=== PATIENT | female | born 1965 | race Caucasian/White ===

== ENCOUNTER → 2016-04-09 | Outpatient (CLI) | payer OTHER ==
[~2016-04-09] MED LIST: BUPR200T2 PO; BUPRTAB51 PO; CLON0.5T3 PO; CYCL5TAB PO; FLUO10CA48 PO; MULT-506 PO; TIZA2CAP PO; VNTHFA/IN INH; ZOLP10TA PO; ZOLP10TA6 PO
--- NOTE | 2016-04-09 15:11 | MAMMOGRAPHY REPORT ---
THIS REPORT HAS BEEN AMENDED. UNILATERAL LEFT DIGITAL DIAGNOSTIC MAMMOGRAM TOMOSYNTHESIS AND LEFT ULTRASOUND: 04/09/2016 CLINICAL HISTORY: Callback from screening mammography for a subcentimeter mass in the superior left breast, and left lateral asymmetry. No family history of breast cancer. TECHNIQUE: Spot compression CC and MLO tomosynthesis images with reconstructed C-view were obtained in the left breast. COMPARISON: Comparison is made to exams dated: 03/20/2016 mammogram - [facility], 01/22/2013 mammogram, 12/26/2012 mammogram - [facility], and 08/20/2007. BREAST COMPOSITION: The tissue of the left breast is heterogeneously dense, which may obscure small masses. FINDINGS: There is effacement of the dense asymmetry in the lateral, middle one third of the left br east on the spot compression CC tomosynthesis images. There is no persistent architectural distorti on or suspicious mass. There is an oval circumscribed benign-appearing 6.3 mm mass in the lateral, middle to posterior left breast on the spot compression CC view, which is thought to project in the 2:00 to 3:00 axis based on the spot compression MLO view. Further evaluation with ultrasound was pe rformed throughout the left breast given the asymmetries, masses and dense breast parenchyma. Real-time high-resolution sonographic evaluation was performed throughout the entire left breast inc luding the axilla. Multiple anechoic cysts are identified. The first is located in the 1:00 axis, 1 cm from the nipple, measuring 4.9 x 2.5 mm. 2 abutting anechoic simple cysts are seen in the 2:00 left breast, 4 cm from the nipple, measuring 6.9 x 4.1 x 5.5 mm. This is thought to correlate well with the circumscribed oval mammographic mass. An oval parallel circumscribed anechoic cyst is see n in the 3:00 left breast, 2 cm from the nipple, measuring 6.2 x 2.2 mm. Another lobulated anechoic cyst with posterior acoustic enhancement is identified in the 5:00 periareolar left breast measurin g 6.8 x 4.2 mm. A deeper anechoic cyst is seen in the 9:00 periareolar left breast measuring 6.8 x 4.0 mm. 2 small cysts are seen in the 10:00 axis of the left breast. Within the 10:00 breast, 2 cm from the nipple, there is a 2.5 x 2.1 mm anechoic cyst, and there is a 2.6 x 3.0 mm anechoic cyst 3 cm from the nipple. IMPRESSION: ACR BI-RADS CATEGORY 2: BENIGN, ULTRASOUND ACR BI-RADS CATEGORY 2: BENIGN 1. There is effacement of the left lateral asymmetry, and no suspicious sonographic correlate. Thi s most likely represented normal overlapping fibroglandular tissue and is benign. No further follow -up is needed at this time. 2. The circumscribed mass in the upper outer quadrant of the left breast correlates with 2 abutting anechoic simple cysts on ultrasound. Several other anechoic cysts are scattered throughout the lef t breast, compatible with fibrocystic changes. There is no sonographic evidence of malignancy. Rec ommend follow-up at time of next annual screening mammogram. These results and recommendations were discussed with the patient at the time of the exam. Approximately 10% of breast cancers are not detected with mammography. A negative mammographic repor t should not delay biopsy if a clinically suggestive mass is present. Lashell Cameron M.D. ay/:04/09/2016 14:23:18 Back Grinder: Carolyn WEINSTEIN)([place]), [facility] letter sent: Normal 1/2 BI-RADS Code: ACR BI-RADS Category 2: Benign Ultrasound BI-RADS: ACR BI-RADS Category 2: Benign AMENDMENT: 04/09/2016 Lashell Cameron M.D. The additional finding of possible architectural distortion in the anterior subareolar left breast, only seen on the MLO tomosynthesis images completely effaces on the spot compression MLO tomosynthes is view and has the appearance of normal architecture of the breast including blood vessels and Coop er's ligaments. This is considered benign as well. Amended BI-RADS: ACR BI-RADS Category 2: Benign
== END | disposition home or self-care (01) ==
LOC: C.MAMM 13:38
PROVIDERS: ATTEND Obstetrics & Gynecology
DX: R92.8 Other abnormal and inconclusive findings on diagnostic imaging of breast (principal); N60.02 Solitary cyst of left breast

== ENCOUNTER → 2016-04-24 | Outpatient (CLI) | payer OTHER ==
[~2016-04-24] MED LIST changes: -BUPR200T2 PO
[2016-04-24 13:13] LABS: BASO % 1.3 %; BASO ABS # 0.06 K/uL (0-0.2); COMPLETE YES; EOS % 2.7 %; HEMATOCRIT 39.2 % (37-47); IG% 0.2 %; LYMPH % 40.4 %; LYMPH ABS # 1.92 K/uL (1.2-3.4); MEAN CELL VOLUME 87.9 fL (80-100); MEAN CORPUSCULAR HEMOGLOBIN 29.8 pg (25-34); MEAN CORPUSCULAR HGB CONC 33.9 g/dl (32-36); MEAN PLATELET VOLUME 10.3 fL (7.4-10.4); MONO % 8.4 %; PLATELET COUNT 286 K/uL (130-400); RED BLOOD COUNT 4.46 M/uL (4.2-5.4); WHITE BLOOD COUNT 4.75 K/uL (4.8-10.8)
[2016-04-24 13:45] LABS: ALB/GLOB RATIO 1.4 (0.9-2); ALKALINE PHOSPHATASE 50 U/L (45-117); ALT/SGPT 18 U/L (12-78); AST/SGOT 9 U/L (15-37); BLOOD UREA NITROGEN 15 mg/dl (7-18); BUN/CREATININE RATIO 16.8 (10-20); CALCIUM 8.7 mg/dl (8.5-10.1); CARBON DIOXIDE 23 mmol/L (21-32); CHLORIDE 109 mmol/L (98-107); GLUCOSE 89 mg/dl (70-99); HDL CHOLESTEROL 68 mg/dl; SODIUM 141 mmol/L (136-145)
[2016-04-24 13:50] LABS: C-REACTIVE PROTEIN < 0.29 mg/dl (0-0.29); CHOLESTEROL 202 mg/dl (0-200); LDL CHOLESTEROL CALCULATED 120 mg/dl; RHEUMATOID FACTOR < 10.0 U/mL (0-15); TRIGLYCERIDES 69 mg/dl (0-150); URIC ACID 3.6 mg/dl (2.6-7.2); VERY LOW DENSITY LIPOPROT CALC 14 mg/dl
[2016-04-24 13:53] LABS: BENZODIAZEPINE, URINE NEG (NEG); COCAINE,URINE NEG (NEG); PHENCYCLIDINE, URINE NEG (NEG)
[2016-04-25 15:27] LABS: CYCLIC CITRULLINATED PEPT IGG <16 UNITS (<20)
== END | disposition home or self-care (01) ==
LOC: C.LABBC 10:06
PROVIDERS: ATTEND Nurse Practitioner Adult Health
DX: Z13.220 Encounter for screening for lipoid disorders (principal); R51 Headache; M13.0 Polyarthritis, unspecified; M25.50 Pain in unspecified joint

== ENCOUNTER → 2016-07-25 | Outpatient (CLI) | payer OTHER ==
[~2016-07-25] MED LIST changes: +BUPR200T2 PO
--- NOTE | 2016-07-25 10:00 | DIAGNOSTIC IMAGING REPORT ---
RIGHT HAND 3 VIEWS CLINICAL HISTORY: Polyarthropathy. FINDINGS: 3 views of the right hand are obtained. No prior studies are available for comparison at the time of dictation. The skeletal structures are well mineralized. No fracture is seen. There is minimal osteoarthritic change at the first carpometacarpal articulation. Minimal osteoarthritic change is also seen involving the interphalangeal joints. No erosive disease is identified. The overlying soft tissues are within normal limits. IMPRESSION: Minimal osteoarthritic change as above. No acute bony abnormality is identified and there is no evidence of erosive arthropathy. Electronically signed by: Marshall Torres M.D. 07/25/2016 9:58 AM Dictated Date/Time: 07/25/2016 9:57 AM
--- NOTE | 2016-07-25 10:02 | DIAGNOSTIC IMAGING REPORT ---
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 DISCUSSION: The bones and joint spaces appear intact. There is no evidence of fracture, dislocation or bony disease. There is no evidence for soft tissue swelling. IMPRESSION: Negative study. Electronically signed by: Toan Snow M.D. 07/25/2016 10:00 AM Dictated Date/Time: 07/25/2016 10:00 AM
[2016-07-29 02:35] LABS: ANTI-CENTROMERE AB <1.0 NEG AI (<1.0 NEG); ANTI-SS-A <1.0 NEG AI (<1.0 NEG); ANTI-SS-B <1.0 NEG AI (<1.0 NEG); DNA ds CRITHIDIA NEGATIVE (NEGATIVE); Sm Antibody <1.0 NEG AI (<1.0 NEG)
== END | disposition home or self-care (01) ==
LOC: C.RAD1850 09:31
PROVIDERS: ATTEND Internal Medicine Rheumatology
DX: M13.0 Polyarthritis, unspecified (principal); R76.8 Other specified abnormal immunological findings in serum

== ENCOUNTER → 2016-11-12 | Outpatient (CLI) | payer OTHER ==
[~2016-11-12] MED LIST changes: -BUPR200T2 PO
--- NOTE | 2016-11-12 13:02 | DIAGNOSTIC IMAGING REPORT ---
CHEST 2 VIEWS ROUTINE HISTORY: Short of breath. COMPARISON: None. FINDINGS: The lungs are clear. Cardiac silhouette is normal in size. No pleural effusions. No pneumothorax. IMPRESSION: No acute process. Electronically signed by: Roderick High M.D. 11/12/2016 1:00 PM Dictated Date/Time: 11/12/2016 12:57 PM
== END | disposition home or self-care (01) ==
LOC: C.RAD1850 12:39
PROVIDERS: ATTEND Nurse Practitioner Adult Health
DX: R06.02 Shortness of breath (principal)

== ENCOUNTER → 2016-11-27 | Day surgery (SDC) | payer OTHER ==
[2016-11-14 08:17] VITALS: Ht 167.6 cm; Wt 70.5 kg
[~2016-11-27] VITALS: Ht 167.6 cm; Wt 70.5 kg
[~2016-11-27] MED LIST changes: -CYCL5TAB PO; +LIDOCAINE HCL 2% 2 ML VIAL (20MG/ML) ONE; -MULT-506 PO; +PROPOFOL IV EMULSION 10 MG/ML 20 ML VIAL IV ONE; +SODIUM CHLORIDE 0.9% 500ML 500 ML IV ONE; -ZOLP10TA PO
--- NOTE | 2016-11-27 10:52 | Endo History and Physical ---
History & Physical Date of Service: Nov 27, 2016. Chief Complaint: SCREENING FOR COLON CANCER Referring Physician: DEIDRE BENNETT History of Present Illness 51 yo CF who presents for screening colonoscopy. Past Surgical History Hx Cardiac Surgery: No Hx Internal Defibrillator: No Hx Pacemaker: No Hx Abdominal Surgery: Yes ( X2) Hx of Implantable Prosthesis: No Hx Post-Op Nausea and Vomiting: Yes Hx Cancer Surgery: No Hx Thoracic Surgery: No Hx Orthopedic: Yes (LT KNEE ARTHROSCOPY, RT TRIGGER THUMB RELEASE) Hx Urinary Tract Surgery: No Family History None Social History Smoking Status: Never Smoker Hx Substance Use: No Hx Alcohol Use: No Allergies Coded Allergies: NO KNOWN DRUG ALLERGIES (Verified Allergy, Unknown, ., 11/27/16) Nickel (Verified Adverse Reaction, Mild, SKIN SENSITIVITY, 11/27/16) "USES SENSITIVE SKIN EARINGS" Current Medications Reported Home Medications Medications Dose Route/Sig Max Daily Dose Days Date Category Prozac (Fluoxetine HCl) 10 Mg Cap 10 Mg PO UD PRN 11/14/16 Reported Ventolin Hfa (Albuterol) 200 Puffs/95880 Mcg Aers 2-4 Puffs INH Q6H PRN 11/14/16 Reported Zanaflex (Tizanidine HCl) 2 Mg Cap 2 Mg PO BID PRN 11/14/16 Reported Zolpidem Tartrate 10 Mg Tab 0.5-1 Tab PO HS PRN 11/14/16 Reported Klonopin (Clonazepam) 0.5 Mg Tab 0.5-1 Tab PO HS PRN 11/14/16 Reported Wellbutrin-Xl (Bupropion HCl) 300 Mg Tabcr 300 Mg PO HS 11/14/16 Reported Vital Signs Weight (Kilograms): 70.45 Height (Feet): 5 Height (Inches): 6 Date Time Temp Pulse Resp B/P (MAP) Pulse Ox O2 Delivery O2 Flow Rate FiO2 11/27/16 10:31 37.1 74 18 106/64 (78) 100 Room Air Physical Exam General Appearance: WD/WN, no apparent distress Respiratory/Chest: Auscultation: breath sounds normal Cardiovascular: Heart Auscultation: RRR Abdomen: Bowel Sounds: normal Inspection & Palpation: soft, non-distended, no tenderness, guarding & rebound Assessment and Plan Assessment: 51 yo CF who presents for screening colonoscopy. Plan: Proceed with colonoscopy.
--- NOTE | 2016-11-27 11:15 | Discharge Instructions ---
Endoscopy Patient Instructions Date / Procedure(s) Performed Nov 27, 2016. Colonoscopy Allergy Information Coded Allergies: NO KNOWN DRUG ALLERGIES (Verified Allergy, Unknown, ., 11/27/16) Nickel (Verified Adverse Reaction, Mild, SKIN SENSITIVITY, 11/27/16) "USES SENSITIVE SKIN EARINGS" Discharge Date / Findings Nov 27, 2016. Diverticulosis and Internal hemorrhoids Medication Instructions OK to resume all medications today as prescribed Reported Home Medications Medications Dose Route/Sig Max Daily Dose Days Date Category Prozac (Fluoxetine HCl) 10 Mg Cap 10 Mg PO UD PRN 11/14/16 Reported Ventolin Hfa (Albuterol) 200 Puffs/03211 Mcg Aers 2-4 Puffs INH Q6H PRN 11/14/16 Reported Zanaflex (Tizanidine HCl) 2 Mg Cap 2 Mg PO BID PRN 11/14/16 Reported Zolpidem Tartrate 10 Mg Tab 0.5-1 Tab PO HS PRN 11/14/16 Reported Klonopin (Clonazepam) 0.5 Mg Tab 0.5-1 Tab PO HS PRN 11/14/16 Reported Wellbutrin-Xl (Bupropion HCl) 300 Mg Tabcr 300 Mg PO HS 11/14/16 Reported Provider Instructions Activity Restrictions - No exercising or heavy lifting for 24 hours. - Do not drink alcohol the day of the procedure. - Do not drive a car or operate machinery until the day after the procedure. - Do not make any important decisions or sign important papers in 24 hours after the procedure. Following Day: - Return to full activity which may include returning to work/school. Diet Start your diet with liquids and light foods (jello, soup, juice, toast). Then eat your usual diet if not nauseated. Treatment For Common After Affects For mild abdominal pain, bloating, or excessive gas: - Rest - Eat lightly - Lie on right side Follow-Up Information Follow-up with DEIDRE BENNETT as scheduled Anesthesia Information What You Should Know You have had a procedure that required some medicine to reduce anxiety and discomfort. This treatment is called moderate sedation. After receiving the treatment, you may be sleepy, but you will be able to breathe on your own. The effects of the treatment may last for several hours. Follow these instructions along with Activity/Diet recommendations noted above: * Do NOT do anything where dizziness or clumsiness would be dangerous. * Rest quietly at home today, then you can be up and about tomorrow. * Have a responsible person stay with you the rest of today. * You may have had an I.V. today. If so, you may take the dressing off later today. Recommendations Call your doctor if: * Trouble breathing * Continuous vomiting for more than 24 hours * Temperature above 101 degrees * Severe abdominal pain or bloating * Pain not relieved by pain medicine ordered * There is increased drainage or redness from any incision * A large amount of rectal bleeding greater than 2-3 tablespoons. (If you had a polyp/s removed or have hemorrhoids, a small amount of blood - from the rectum is to be expected.) * You have any unanswered questions or concerns. IN THE EVENT OF A SERIOUS EMERGENCY, GO TO THE NEAREST EMERGENCY ROOM Your discharge instructions were prepared by provider Nixon Saini. Patient Instructions Signature Page Katina Chau Patient (or Guardian) Signature/Date: I have read and understand the instructions given to me by my caregivers. Caregiver/RN/Doctor Signature/Date: The above-named patient and/or guardian has received patient instructions on this date. + Original Patient Signature Page (only) stays with chart. Please make copy for patient.
--- NOTE | 2016-11-27 11:35 | Anesthesiology Progress Note ---
Anesthesia Post Op Note Date & Time Nov 27, 2016 at 11:35 Vital Signs Pain Intensity: 0 Vital Signs Past 12 Hours Date Time Temp Pulse Resp B/P (MAP) Pulse Ox O2 Delivery O2 Flow Rate FiO2 11/27/16 11:31 69 16 113/61 (78) 100 Room Air 11/27/16 11:16 76 16 101/57 (72) 100 Room Air 11/27/16 10:31 37.1 74 18 106/64 (78) 100 Room Air Notes Mental Status: alert / awake / arousable, participated in evaluation Pt Amnestic to Procedure: Yes Nausea / Vomiting: adequately controlled Pain: adequately controlled Airway Patency, RR, SpO2: stable & adequate BP & HR: stable & adequate Hydration State: stable & adequate Anesthetic Complications: no major complications apparent
[2016-11-27 11:46] VITALS: BP 104/58; PULSE 70; O2SAT 100
--- NOTE | 2016-11-28 00:14 | GI REPORT ---
Procedure Date: 11/27/2016 10:46 AM Procedure: Colonoscopy Indications: Screening for colorectal malignant neoplasm Medicines: Monitored Anesthesia Care Complications: No immediate complications. Estimated Blood Loss: Estimated blood loss: none. Procedure: Pre-Anesthesia Assessment: - Prior to the procedure, a History and Physical was performed, and patient medications and allergies were reviewed. The patient's tolerance of previous anesthesia was also reviewed. The risks and benefits of the procedure and the sedation options and risks were discussed with the patient. All questions were answered, and informed consent was obtained. Prior Anticoagulants: The patient has taken no previous anticoagulant or antiplatelet agents. ASA Grade Assessment: II - A patient with mild systemic disease. After reviewing the risks and benefits, the patient was deemed in satisfactory condition to undergo the procedure. After I obtained informed consent, the scope was passed under direct vision. Throughout the procedure, the patient's blood pressure, pulse, and oxygen saturations were monitored continuously. The Scope was introduced through the anus and advanced to the terminal ileum. The colonoscopy was performed without difficulty. The patient tolerated the procedure well. The quality of the bowel preparation was good. The terminal ileum, ileocecal valve, appendiceal orifice, and rectum were photographed. Findings: Multiple small-mouthed diverticula were found in the sigmoid colon. Internal hemorrhoids were found during retroflexion. The hemorrhoids were small. Impression: - Diverticulosis in the sigmoid colon. - Internal hemorrhoids. - No specimens collected. Recommendation: - Resume previous diet. - Continue present medications. - Repeat colonoscopy in 10 years for surveillance. - Return to primary care physician as previously scheduled. Nixon Saini, DO 11/27/2016 11:13:50 AM This report has been signed electronically. Note Initiated On: 11/27/2016 10:46 AM I attest to the content of the Intraoperative Record and orders documented therein, exceptions below
== END | disposition home or self-care (01) ==
LOC: C.GI 10:09
PROVIDERS: ATTEND Internal Medicine
DX: Z12.11 Encounter for screening for malignant neoplasm of colon (principal); K57.30 Diverticulosis of large intestine without perforation or abscess without bleeding; K64.8 Other hemorrhoids

== ENCOUNTER → 2017-03-05 | Day surgery (SDC) | payer OTHER ==
[2017-02-12 15:43] VITALS: Ht 167.6 cm; Wt 68.6 kg
[2017-02-20 18:06] LABS: URINE APPEARANCE CLEAR (CLEAR); URINE BILIRUBIN NEG (NEG); URINE COLOR YELLOW; URINE NITRITE NEG (NEG); URINE SPECIFIC GRAVITY 1.017 (1.000-1.030); UROBILINOGEN NEG (NEG)
[2017-02-20 18:08] LABS: MANUAL MICROSCOPIC REQUIRED? NO; REVIEW REQ? NO
[2017-02-24 09:38] LABS: BASO % 0.9 %; BASO ABS # 0.04 K/uL (0-0.2); COMPLETE YES; EOS % 3.5 %; HEMATOCRIT 36.1 % (37-47); LYMPH % 35.6 %; LYMPH ABS # 1.53 K/uL (1.2-3.4); MEAN CELL VOLUME 87.8 fL (80-100); MEAN CORPUSCULAR HEMOGLOBIN 28.2 pg (25-34); MEAN CORPUSCULAR HGB CONC 32.1 g/dl (32-36); MEAN PLATELET VOLUME 10.1 fL (7.4-10.4); MONO % 6.5 %; NEUT % 53.5 %; PLATELET COUNT 293 K/uL (130-400); RED BLOOD COUNT 4.11 M/uL (4.2-5.4)
[~2017-03-05] VITALS: Ht 167.6 cm; Wt 68.6 kg
[~2017-03-05] MED LIST changes: +ATROPINE SULFATE 0.1 MG/ML 5ML SYR IV PRN; +BETAXOLOL HCL 0.25% OP SUSP PER DROP CHARGE OPL SCH; +BUPR200T2 PO; -BUPRTAB51 PO; +CYCLOPENTOLATE HCL 1% OP SOLN PER DROP CHARGE OPL SCH; +DEXAMETHASONE SOD INJ 4 MG/ML VIAL ONE; +EpHEDrine SULFATE INJ 50 MG/ML AMP IV PRN; +FENTANYL CITRATE INJ 50 MCG/1 ML 2 ML VIAL IV PRN; +FENTANYL CITRATE INJ 50 MCG/1 ML 2 ML VIAL ONE; +HYDROmorphone INJ 1 MG/ML SYR IV PRN; +KETOROLAC TROMETHAMINE 30 MG/ML VIAL ONE; +LACTATED RINGER'S 1000ML 1,000 ML IV SCH; +LACTATED RINGER'S 1000ML 500 ML IV SCH; +LIDOCAINE 4% OP SOLN DROP CHARGE OPL SCH; +MIDAZOLAM HCL 1 MG/ML 2ML VIAL ONE; +MOXIFLOXACIN OPH SOLN PER DROP CHARGE OPL SCH; +ONDANSETRON INJ 2 MG/ML 2 ML VIAL IV PRN; +ONDANSETRON INJ 2 MG/ML 2 ML VIAL ONE; +OXYCODONE/ACETAMINOPHEN 5-325 TAB PO PRN; +PHENYLEPHRINE HCL 2.5% OP SOLN PER DROP CHARGE OPL SCH; +PROMETHAZINE HCL INJ 12.5 MG in SODIUM CHLORIDE 0.9% 50ML 50 ML IV PRN; +PROMETHAZINE HCL INJ 25 MG in SODIUM CHLORIDE 0.9% 50ML 50 ML IV PRN; +PROPARACAINE 0.5% OP SOLN PER DROP CHARGE OPL SCH; +SODIUM CHLORIDE 0.9% 1000ML 1,000 ML IV SCH; -SODIUM CHLORIDE 0.9% 500ML 500 ML IV ONE; +TROPICAMIDE 1% OP SOLN PER DROP CHARGE OPL SCH; -VNTHFA/IN INH
--- NOTE | 2017-03-05 13:10 | History & Physical Bridge - SC ---
H&P Re-Evaluation Bridge Note: I have examined the patient, reviewed the History & Physical and in the interval since the performance of the History & Physical I have noted the following changes of clinical significance: No changes noted
[2017-03-05 13:57] VITALS: TEMP 36.3
--- NOTE | 2017-03-05 14:06 | [facility] Post Operative Brief Note ---
Immediate Operative Summary Operative Date Mar 05, 2017. Pre-Operative Diagnosis Menorrhagia Post-Operative Diagnosis Same as pre-op Procedure(s) Performed Dilatation And Curettage, Hysteroscopy, Intrauterine Device Placement Surgeon Screen Printer Helper Surgeon(s) None Estimated Blood Loss 5ML Findings Large amount of fluffy endometrium, bilateral tubal ostia visualized. Retroverted uterus, sounded to 9cm. Specimens A.Endometrial currettings Drains bladder drained prior to procedure Anesthesia heavy sedation Complication(s) None Disposition Recovery Room / PACU
--- NOTE | 2017-03-05 14:07 | Discharge Instructions-SurgCtr ---
Discharge Instructions Date of Service Mar 05, 2017. Visit Reason for Visit: Menorrhagia Discharge Discharge Diagnosis / Problem: same Discharge Goals Goal(s): Diagnostic testing, Therapeutic intervention Activity Recommendations Activity Limitations: per Instructions/Follow-up section Anesthesia . Post Anesthesia Instructions: If you have had General Anesthesia or IV Sedation: * Do not drive today. * Resume driving when surgeon permits. * Do not make important decisions or sign legal documents today. * Call surgeon for: 1. Temperature elevations greater than 101 degrees F. 2. Uncontrollable pain. 3. Excessive bleeding. 4. Persistent nausea and vomiting. 5. Medication intolerance (nausea, vomiting or rash). * For nausea and vomiting use only clear liquids such as: tea, soda, bouillon until nausea subsides, then gradually increase diet as tolerated. * If you have any concerns or questions, call your surgeon's office. If physician is unavailable and it is an emergency, call 911 or go to the nearest emergency room. . Instructions / Follow-Up Instructions / Follow-Up ACTIVITY RECOMMENDATIONS: * Avoid tampons, douching, hot tubs, pools, and intercourse until bleeding has stopped. * May shower as usual. * No strenuous activity for 24-48 hours. After 24-48 hours, you may do anything you feel like doing (driving and sports are okay). SPECIAL CARE INSTRUCTIONS: Special Diet: * Mild nausea may occur in the immediate post-operative period. * Take clear liquids such as tea, cola or bouillon until all nausea has subsided; you may then resume your normal diet. Special Care: * Light bleeding and vaginal spotting can last from a few days to 3-4 weeks. Call your doctor if bleeding becomes heavier than the heaviest part of your period. * Check your temperature twice a day for one week. If it goes above 100.4 degrees Fahrenheit (38.0 Celsius), notify your doctor. * Call your doctor's office for an appointment for 6 weeks after your surgery. FOLLOW-UP VISIT: Call your doctor's office for an appointment for 6 weeks after your surgery. Diet Recommendations Home Diet: resume previous diet Procedures Procedures Performed: Dilatation And Curettage, Hysteroscopy, Intrauterine Device Placement Pending Studies Studies pending at discharge: yes List of pending studies: endometrial curettage Medical Emergencies . Who to Call and When: Medical Emergencies: If at any time you feel your situation is an emergency, please call 911 immediately. . Non-Emergent Contact Non-Emergency issues call your: Primary Care Provider, Water Treatment Plant Operator . . "Provider Documentation" section prepared by Janelle Church. .
--- NOTE | 2017-03-05 14:24 | OPERATIVE REPORT ---
DATE OF OPERATION: 03/05/2017 PREOPERATIVE DIAGNOSIS: Menorrhagia. POSTOPERATIVE DIAGNOSIS: Same. PROCEDURES PERFORMED: Dilation and curettage, hysteroscopy and placement of Mirena intrauterine device. SURGEON: Dr. Janelle Church. STRAIGHTENER GUN PARTS: None. ESTIMATED BLOOD LOSS: 5 mL. FINDINGS: Large amount of fluffy endometrium, bilateral tubal ostia visualized, retroverted uterus sounded to 9 cm. SPECIMENS: Endometrial curettings. DRAINS: Bladder drained prior to procedure. ANESTHESIA: Heavy sedation. COMPLICATIONS: None. DISPOSITION: Stable and good to recovery area. INDICATIONS FOR PROCEDURE: The patient is a 51-year-old with thickened endometrial lining on ultrasound and history of heavy menses. In office endometrial biopsy was attempted but unable to perform due to discomfort and patient intolerance, thus in office hysteroscopy, D&C and insertion of Mirena IUD at the same time was planned. DESCRIPTION OF PROCEDURE: The patient was seen in the preoperative holding area where risks, benefits, alternatives to surgery were reviewed. She elected to proceed with surgery. She had previously signed informed consent in the office under no duress. She was taken to the operating room where heavy sedation was introduced. She was placed in the dorsal lithotomy position with feet in candy cane stirrups and prepared and draped in the usual sterile fashion. Timeout was confirmed. A weighted speculum was placed in the vagina and the cervix was visualized. The anterior lip was grasped with a single tooth tenaculum. Cervix was gently dilated to admit a hysteroscope. Hysteroscope was inserted, the cavity was viewed, the above noted findings were seen. The hysteroscope was then withdrawn and a gentle curettage was undertaken with a sharp curette. These curettings were then sent to pathology for further evaluation. Next, the Mirena IUD device was inserted through the cervix to the fundus, pulled back approximately 1 cm. The arms were deployed. About 15 seconds of waiting and then the insertion device was removed. Strings were trimmed at about 2-3 cm and tucked behind the cervix. All instruments were removed from the vagina. Excellent hemostasis was observed. The patient was taken to the recovery area in stable and good condition. I attest to the content of the Intraoperative Record and any orders documented therein. Any exception s are noted below.
[2017-03-05 14:45] VITALS: BP 127/80; PULSE 72; O2SAT 100
--- NOTE | 2017-03-05 14:56 | Anesthesia Progress Nt - [facility] ---
Anesthesia Post Op Note Date & Time Mar 05, 2017 at 14:55 Vital Signs Pain Intensity: 2.0 Vital Signs Past 12 Hours Date Time Temp Pulse Resp B/P (MAP) Pulse Ox O2 Delivery O2 Flow Rate FiO2 03/05/17 14:45 72 16 127/80 (96) 100 Room Air 03/05/17 14:20 114/57 (76) 98 03/05/17 14:15 100/65 (77) 98 03/05/17 13:57 36.3 66 16 120/71 (87) 97 Room Air 03/05/17 12:08 36.9 74 16 117/70 (86) 100 Room Air Notes Mental Status: alert / awake / arousable, participated in evaluation Pt Amnestic to Procedure: Yes Nausea / Vomiting: adequately controlled Pain: adequately controlled Airway Patency, RR, SpO2: stable & adequate BP & HR: stable & adequate Hydration State: stable & adequate Anesthetic Complications: no major complications apparent
== END | disposition home or self-care (01) ==
LOC: X.SURG 11:49
PROVIDERS: ATTEND Obstetrics & Gynecology
DX: N92.0 Excessive and frequent menstruation with regular cycle (principal); F41.8 Other specified anxiety disorders; M19.041 Primary osteoarthritis, right hand; M19.042 Primary osteoarthritis, left hand; Z83.3 Family history of diabetes mellitus; Z83.49 Family history of other endocrine, nutritional and metabolic diseases; Z82.49 Family history of ischemic heart disease and other diseases of the circulatory system

== ENCOUNTER → 2017-05-15 | Outpatient (CLI) | payer OTHER ==
[~2017-05-15] MED LIST changes: -ATROPINE SULFATE 0.1 MG/ML 5ML SYR IV PRN; -BETAXOLOL HCL 0.25% OP SUSP PER DROP CHARGE OPL SCH; -CYCLOPENTOLATE HCL 1% OP SOLN PER DROP CHARGE OPL SCH; -DEXAMETHASONE SOD INJ 4 MG/ML VIAL ONE; -EpHEDrine SULFATE INJ 50 MG/ML AMP IV PRN; -FENTANYL CITRATE INJ 50 MCG/1 ML 2 ML VIAL IV PRN; -FENTANYL CITRATE INJ 50 MCG/1 ML 2 ML VIAL ONE; -HYDROmorphone INJ 1 MG/ML SYR IV PRN; -KETOROLAC TROMETHAMINE 30 MG/ML VIAL ONE; -LACTATED RINGER'S 1000ML 1,000 ML IV SCH; -LACTATED RINGER'S 1000ML 500 ML IV SCH; -LIDOCAINE 4% OP SOLN DROP CHARGE OPL SCH; -LIDOCAINE HCL 2% 2 ML VIAL (20MG/ML) ONE; -MIDAZOLAM HCL 1 MG/ML 2ML VIAL ONE; -MOXIFLOXACIN OPH SOLN PER DROP CHARGE OPL SCH; -ONDANSETRON INJ 2 MG/ML 2 ML VIAL IV PRN; -ONDANSETRON INJ 2 MG/ML 2 ML VIAL ONE; -OXYCODONE/ACETAMINOPHEN 5-325 TAB PO PRN; -PHENYLEPHRINE HCL 2.5% OP SOLN PER DROP CHARGE OPL SCH; -PROMETHAZINE HCL INJ 12.5 MG in SODIUM CHLORIDE 0.9% 50ML 50 ML IV PRN; -PROMETHAZINE HCL INJ 25 MG in SODIUM CHLORIDE 0.9% 50ML 50 ML IV PRN; -PROPARACAINE 0.5% OP SOLN PER DROP CHARGE OPL SCH; -PROPOFOL IV EMULSION 10 MG/ML 20 ML VIAL IV ONE; -SODIUM CHLORIDE 0.9% 1000ML 1,000 ML IV SCH; -TROPICAMIDE 1% OP SOLN PER DROP CHARGE OPL SCH
== END | disposition home or self-care (01) ==
LOC: C.LABSPEC 11:01
PROVIDERS: ATTEND Nurse Practitioner Adult Health
DX: R39.9 Unspecified symptoms and signs involving the genitourinary system (principal)

== ENCOUNTER → 2017-06-10 | Outpatient (CLI) | payer OTHER | END | disposition home or self-care (01) | LOC: C.PATHSPEC 16:24 | PROVIDERS: ATTEND Dermatology | DX: L82.1 Other seborrheic keratosis (principal); D23.62 Other benign neoplasm of skin of left upper limb, including shoulder ==

== ENCOUNTER → 2017-06-20 | Outpatient (CLI) | payer OTHER | END | disposition home or self-care (01) | LOC: C.LABSPEC 10:54 | PROVIDERS: ATTEND Nurse Practitioner Family | DX: R39.9 Unspecified symptoms and signs involving the genitourinary system (principal) ==

== ENCOUNTER → 2017-11-10 | Outpatient (CLI) | payer OTHER ==
[~2017-11-10] MED LIST changes: -CLON0.5T3 PO; +KLN/5 PO
[2017-11-10 09:53] LABS: BASO % 0.6 %; BASO ABS # 0.03 K/uL (0-0.2); EOS % 4.3 %; EOS ABS # 0.22 K/uL (0-0.5); HEMATOCRIT 36.6 % (37-47); HEMOGLOBIN 12.1 g/dL (12.0-16.0); IG# 0.01 K/uL (0.00-0.02); LYMPH % 36.8 %; MEAN CORPUSCULAR HEMOGLOBIN 29.1 pg (25-34); MEAN CORPUSCULAR HGB CONC 33.1 g/dl (32-36); MEAN PLATELET VOLUME 10.2 fL (7.4-10.4); MONO % 8.5 %; MONO ABS # 0.44 K/uL (0.11-0.59); NEUT % 49.6 %; NEUT ABS # 2.57 K/uL (1.4-6.5); PLATELET COUNT 264 K/uL (130-400); RED CELL DISTRIBUTION WIDTH CV 13.2 % (11.5-14.5); RED CELL DISTRIBUTION WIDTH SD 42.3 fL (36.4-46.3); WHITE BLOOD COUNT 5.17 K/uL (4.8-10.8)
== END | disposition home or self-care (01) ==
LOC: C.LAB1850 07:17
PROVIDERS: ATTEND Obstetrics & Gynecology
DX: Z01.812 Encounter for preprocedural laboratory examination (principal)

== ENCOUNTER → 2017-11-12 | Day surgery (SDC) | payer OTHER ==
[2017-09-30 13:47] VITALS: Ht 167.6 cm; Wt 70.6 kg
[~2017-11-12] VITALS: Ht 167.6 cm; Wt 70.6 kg
[~2017-11-12] MED LIST changes: +ATROPINE SULFATE 0.1 MG/ML 5ML SYR IV PRN; +DEXAMETHASONE SOD INJ 4 MG/ML VIAL ONE; +EpHEDrine SULFATE INJ 50 MG/ML AMP IV PRN; +FENTANYL CITRATE INJ 50 MCG/1 ML 2 ML VIAL IV PRN; +FENTANYL CITRATE INJ 50 MCG/1 ML 2 ML VIAL ONE; +FLUMAZENIL 0.1 MG/1 ML 10 ML VIAL IV PRN; +HYDROmorphone INJ 2 MG/ML SYR/VIAL IV PRN; +KETOROLAC TROMETHAMINE 30 MG/ML VIAL IV. PRN; +LABETALOL HCL IV 5 MG/ML 20ML IV PRN; +LIDOCAINE HCL 2% 2 ML VIAL (20MG/ML) ONE; +MEPERIDINE HCL 25 MG/ML CARP IV PRN; +MIDAZOLAM HCL 1 MG/ML 2ML VIAL ONE; +NALOXONE HCL 0.4 MG/1 ML VIAL/CARP IV PRN; +ONDANSETRON INJ 2 MG/ML 2 ML VIAL IV PRN; +ONDANSETRON INJ 2 MG/ML 2 ML VIAL ONE; +OXYCODONE/ACETAMINOPHEN 5-325 TAB PO PRN; +PHENYLEPHRINE 100MCG/ML 5ML SYR IV PRN; +PROMETHAZINE HCL INJ 25 MG in SODIUM CHLORIDE 0.9% 50ML 50 ML IV PRN; +PROPOFOL IV EMULSION 10 MG/ML 20 ML VIAL ONE; +SCOPOLAMINE 1.5 MG TDSY TD ONE; +SODIUM CHLORIDE 0.9% 1000ML 1,000 ML IV SCH
--- NOTE | 2017-11-12 13:25 | [facility] Post Operative Brief Note ---
Immediate Operative Summary Operative Date Nov 12, 2017. Pre-Operative Diagnosis Menorrhagia Post-Operative Diagnosis same Procedure(s) Performed Dilatation And Curettage, Hysteroscopy, Endometrial Ablation with Novasure Surgeon Dr. Yuliet Church Supervisor Research Shop Surgeon(s) 0 Estimated Blood Loss 5CC Findings Consistent with Post-Op Diagnosis Uterus length: 5cm, width 4.3cm, Power 118, time 1:02. Specimens A. Endometrial Curettings Drains None bladder emptied prior to procedure Anesthesia Type General Complication(s) none Disposition Accompanied Pt To Recover: no Disposition: Recovery Room / PACU
--- NOTE | 2017-11-12 13:30 | [facility] Operative Report ---
Operative Report Operative Date Nov 12, 2017. Pre-Operative Diagnosis Menorrhagia Post-Operative Diagnosis same Procedure(s) Performed Dilatation And Curettage, Hysteroscopy, Endometrial Ablation with Novasure Surgeon Dr. Yuliet Church Scalehouse Attendant Surgeon(s) 0 Estimated Blood Loss 5CC Findings Uterus length: 5cm, width 4.3cm, Power 118, time 1:02. Specimens A. Endometrial Curettings Drains None bladder emptied prior to procedure Anesthesia Type General Complication(s) none Disposition no Recovery Room / PACU Indications 52-year-old with history of heavy menses, negative pathology. Has tried hormonal treatments and these have not been successful, also tried Mirena IUD, felt like this caused extreme moodiness. Requesting permanent therapy. She has a history of tubal ligation. Description of Procedure The patient was seen in the preoperative holding area, where risks benefits and alternatives to surgery reviewed. She elected to proceed with the case. All questions were answered. She had previously signed informed consent under no duress in the office. She was taken to the operating room, where general anesthesia was introduced. She is prepared and draped in the usual sterile fashion with feet in candycane stirrups in the dorsal lithotomy position. Timeout was confirmed. A weighted speculum was placed in the vagina, the cervix was visualized, the anterior lip was grasped with a single-tooth tenaculum. The uterus was sounded , and the cervix was gently dilated to admit the hysteroscope. Hysteroscope was inserted and uterine cavity was visualized with a small amount of fluffy endometrium. The hysteroscope was withdrawn, the curettage was performed using a sharp curette. The specimen was sent to pathology as endometrial curettings. Next, the NovaSure device was inserted, set to the above measurements, and deployed. Upon removal of NovaSure device, there is appearance of burned tissue on the device, indicating a good tissue burn. All answers were removed from the vagina, excellent hemostasis was observed, the patient was taken to the recovery area in stable and good condition. Sponge, instrument, needle counts are correct 2 at the conclusion of the case. I attest to the content of the Intraoperative Record and any orders documented therein. Any exceptions are noted below.
--- NOTE | 2017-11-12 13:34 | Discharge Instructions-SurgCtr ---
Discharge Instructions Date of Service Nov 12, 2017. Visit Reason for Visit: Menorrhagia Discharge Discharge Diagnosis / Problem: s/p endometrial ablation Discharge Goals Goal(s): Diagnostic testing, Therapeutic intervention Activity Recommendations Activity Limitations: per Instructions/Follow-up section Anesthesia . Post Anesthesia Instructions: If you have had General Anesthesia or IV Sedation: * Do not drive today. * Resume driving when surgeon permits. * Do not make important decisions or sign legal documents today. * Call surgeon for: 1. Temperature elevations greater than 101 degrees F. 2. Uncontrollable pain. 3. Excessive bleeding. 4. Persistent nausea and vomiting. 5. Medication intolerance (nausea, vomiting or rash). * For nausea and vomiting use only clear liquids such as: tea, soda, bouillon until nausea subsides, then gradually increase diet as tolerated. * If you have any concerns or questions, call your surgeon's office. If physician is unavailable and it is an emergency, call 911 or go to the nearest emergency room. . Instructions / Follow-Up Instructions / Follow-Up ACTIVITY RECOMMENDATIONS: * Avoid tampons, douching, hot tubs, pools, and intercourse until bleeding has stopped. * May shower as usual. * No strenuous activity for 24-48 hours. After 24-48 hours, you may do anything you feel like doing (driving and sports are okay). SPECIAL CARE INSTRUCTIONS: Special Diet: * Mild nausea may occur in the immediate post-operative period. * Take clear liquids such as tea, cola or bouillon until all nausea has subsided; you may then resume your normal diet. Special Care: * Light bleeding and vaginal spotting can last from a few days to 3-4 weeks. Call your doctor if bleeding becomes heavier than the heaviest part of your period. * Check your temperature twice a day for one week. If it goes above 100.4 degrees Fahrenheit (38.0 Celsius), notify your doctor. * Call your doctor's office for an appointment for 6 weeks after your surgery. FOLLOW-UP VISIT: Call your doctor's office for an appointment for 6 weeks after your surgery. Diet Recommendations Home Diet: resume previous diet Procedures Procedures Performed: Dilatation And Curettage, Hysteroscopy, Endometrial Ablation with Novasure Pending Studies Studies pending at discharge: yes List of pending studies: endometrial curettings Medical Emergencies . Who to Call and When: Medical Emergencies: If at any time you feel your situation is an emergency, please call 911 immediately. . Non-Emergent Contact Non-Emergency issues call your: Primary Care Provider, [employer] . . "Provider Documentation" section prepared by Janelle Church. .
--- NOTE | 2017-11-12 13:50 | Anesthesiology Progress Note ---
Anesthesia Post Op Note Date & Time Nov 12, 2017 at 13:50 Vital Signs Pain Intensity: 3 Vital Signs Past 12 Hours Date Time Temp Pulse Resp B/P (MAP) Pulse Ox O2 Delivery O2 Flow Rate FiO2 11/12/17 13:38 106/62 11/12/17 13:37 114/ 11/12/17 13:36 71 10 100 11/12/17 13:36 69 10 11/12/17 13:32 84/65 11/12/17 13:31 74 8 100 11/12/17 13:31 36.6 73 12 84/65 100 Mask 8 11/12/17 13:31 75 8 11/12/17 11:33 36.9 71 16 94/67 (76) 100 Room Air Notes Mental Status: alert / awake / arousable, participated in evaluation Pt Amnestic to Procedure: Yes Nausea / Vomiting: adequately controlled Pain: adequately controlled Airway Patency, RR, SpO2: stable & adequate BP & HR: stable & adequate Hydration State: stable & adequate Anesthetic Complications: no major complications apparent
[2017-11-12 14:25] VITALS: TEMP 37.1
[2017-11-12 14:56] VITALS: BP 113/73; PULSE 74; O2SAT 98
== END | disposition home or self-care (01) ==
LOC: X.SURG 11:04
PROVIDERS: ATTEND Obstetrics & Gynecology
DX: N92.0 Excessive and frequent menstruation with regular cycle (principal); F41.8 Other specified anxiety disorders; F32.9 Major depressive disorder, single episode, unspecified; Q79.6 Ehlers-Danlos syndromes; M19.90 Unspecified osteoarthritis, unspecified site; Z79.899 Other long term (current) drug therapy; Z87.891 Personal history of nicotine dependence